=== PATIENT | female | born 1955 | race Caucasian/White ===

== ENCOUNTER 2018-07-12 08:00 | Inpatient (IN) ==
[~2018-07-12 08:00] MED LIST: GLUCAGON 1 MG VIAL IM PRN
[2018-07-12] MEDS ORDERED: DEXTROSE 50% 25 GM/50 ML SYRINGE IV PRN (12:00)
[2018-07-12] MEDS ORDERED: NITROGLYCERIN SL 0.4 MG TABLET SL PRN (12:00)
[2018-07-12 14:51] LABS: Basophils # 0.1 10*3/uL (0.0-0.2); Basophils % 0.6 % (0.0-0.8); Eosinophils # 0.3 10*3/uL (0.0-0.87); Eosinophils % 2.8 % (0.00-10.9); Hematocrit 39.7 VOL% (35.7-47.0); Hemoglobin 12.8 GM/DL (12.0-16.0); Immature Granulocytes % 0.7 %; Immature Granulocytes Absolute 0.08 #; Lymphocytes # 4.1 10*3/uL (1.4-4.0); Lymphocytes % 33.9 % (21.3-54.2); Mean Corpuscular HGB Conc 32.2 GM/DL (32-36); Mean Corpuscular Hemoglobin 30 PG (27-34); Mean Corpuscular Volume 92.5 FL (87-102); Mean Platelet Volume 10.1 FL (9.6-12.0); Monocytes % 8.5 % (1.7-12.7); Neutrophils # 6.4 10*3/uL (1.4-7.4); Neutrophils % 53.5 % (38.7-73.9); Platelet Count 338 T/CUMM (130-400); Red Blood Count 4.29 MC/CUMM (3.8-5.5); Red Cell Distribution Width 13.7 % (9.3-17.3)
[2018-07-12] MEDS ORDERED: SODIUM CHLORIDE 0.9% 1,000 ML IV SCH (15:00)
[2018-07-12 15:09] LABS: Alanine Aminotransferase 24 U/L (13-56); Albumin 3.3 G/DL (3.4-5.0); Alkaline Phosphatase 122 U/L (45-117); Aspartate Amino Transferase 14 U/L (0-37); Bilirubin,Total < 0.39 MG/DL (0.2-1.0); Blood Urea Nitrogen 22 MG/DL (7-18); Calcium 8.9 MG/DL (8.5-10.1); Glucose 95 MG/DL (74-106); Osmolality,Calculated 277.7 MOS/KG (273-304); Potassium 3.6 MMOL/L (3.5-5.1); Sodium 138 MMOL/L (136-145); Total Protein 7.2 G/DL (6.4-8.3)
[2018-07-12] MEDS: CARVEDILOL 12.5 MG TABLET PO SCH (17:46)
[2018-07-12] MEDS ORDERED: IBUPROFEN 400 MG TABLET PO PRN (17:55)
[2018-07-12] MEDS ORDERED: ATORVASTATIN 80 MG TABLET PO SCH (21:00)
[2018-07-12] MEDS ORDERED: THYROID 60 MG TABLET PO SCH (21:00)
[2018-07-13] MEDS: CHLORHEXIDINE 0.12% ORAL RINSE 60 ML BOTTLE SWISH/SPIT SCH ×3 (00:16→21:30)
[2018-07-13] MEDS: RANOLAZINE 500 MG TABLET PO SCH ×2 (00:16→18:07)
[2018-07-13] MEDS: DULoxetine 30 MG CAPSULE PO SCH ×2 (00:16→18:06)
[2018-07-13] MEDS: CHLORHEXIDINE 4% SOLN 118 ML BOTTLE TOP SCH ×2 (00:16→18:06)
[2018-07-13] MEDS ORDERED: VANCOMYCIN 1,000 MG VIAL ONE (04:21)
[2018-07-13] MEDS ORDERED: PAPAVERINE 60 MG/2 ML VIAL ONE (04:21)
[2018-07-13] MEDS: CARVEDILOL 12.5 MG TABLET PO SCH (05:33)
[2018-07-13] MEDS ORDERED: FAMOTIDINE 20 MG TABLET PO ONE (06:00)
[2018-07-13] MEDS ORDERED: PANTOPRAZOLE 40 MG TABLET PO ONE (06:00)
[2018-07-13] MEDS ORDERED: VANCOMYCIN INJ 1,000 MG in SODIUM CHLORIDE 0.9% 250 ML IV ONE (06:00)
[2018-07-13] MEDS ORDERED: DIAZEPAM 5 MG TABLET PO ONE (06:00)
[2018-07-13] MEDS ORDERED: SUFentanil 250 MCG/5 ML AMP ONE (06:01)
[2018-07-13] MEDS ORDERED: MIDAZOLAM 10 MG/2 ML VIAL ONE ×2 (06:02)
[2018-07-13] MEDS ORDERED: VECURONIUM 10 MG VIAL IV ONE (06:02)
[2018-07-13] MEDS ORDERED: MINERAL OIL/PETROLATUM OPH OINT 3.5 GM TUBE ONE ×2 (06:02→11:05)
[2018-07-13] MEDS ORDERED: NITROGLYCERIN DRIP 50 MG/250 ML BOTTLE IV ONE (06:19)
[2018-07-13 07:45] LABS: ABG Base Excess -3.2 MMOL/L (-2.5-2.5); ABG HCO3 21.7 MMOL/L (20-26); ABG Oxygen Saturation 99.2 % (95-100); ABG PCO2 43.6 MM HG (35-48); ABG PH 7.326 (7.35-7.45); ABG TCO2 20.6 MMOL/L (23-27); Glucose Heart Surgery 117 MG/DL (74-106); Hematocrit Heart Surgery 34.2 PERCENT (37-47); Hemoglobin Heart Surgery 11.1 G/DL (12.0-16.0); Ionized Calcium Arterial 1.22 MMOL/L (1.21-1.46); PCO2 Patient Temp Arterial 43.6 MMHG; PH Patient Temp Arterial 7.326; Patient Temperature 37 CELCIUS; Potassium Heart/CVR 4.3 MMOL/L (3.5-5.1); Sodium Heart/CVR 138 MMOL/L (135-145)
[2018-07-13] MEDS ORDERED: ASPIRIN 325 MG TABLET PO SCH (09:00)
[2018-07-13] MEDS ORDERED: SPIRONOLACTONE 25 MG TABLET PO SCH (09:00)
[2018-07-13] MEDS ORDERED: LISINOPRIL 20 MG TABLET PO SCH (09:00)
[2018-07-13] MEDS ORDERED: POTASSIUM CHLORIDE RIDER 100 ML IV ONE ×2 (09:10→12:16)
[2018-07-13] MEDS ORDERED: CALCIUM CHLORIDE 1,000 MG/10 ML SYRINGE IV ONE (09:10)
[2018-07-13] MEDS ORDERED: PHENYLEPHRINE DRIP 40 MG/250 ML PREMIX IV ONE (09:10)
[2018-07-13] MEDS ORDERED: NITROPRUSSIDE 50 MG/2 ML VIAL ONE (09:10)
[2018-07-13 09:14] LABS: Apearance,Urine CLEAR (Clear); Bilirubin,Urine Negative (Negative); Blood, Urine Negative (Negative); Glucose,Urine (UA) Negative (Negative); Ketones,Urine Negative (Negative); Nitrite,Urine Negative (Negative); Protein,Urine Negative; RBC,Urine <1 /HPF (0-4); Squamous Epithelial Cell,Urine Occasional /HPF (0-10); Urine Color Straw (Yellow); Urine Specific Gravity 1.011 (1.001-1.035); Urine Urobilinogen < 2.0 EU/DL (0.2-1.0)
[2018-07-13] MEDS ORDERED: HEPARIN/NACL 0.9% 2 UNITS/ML 500 ML IV ONE (09:14)
[2018-07-13] MEDS ORDERED: PHENYLEPHRINE DRIP 20 MG/250 ML PREMIX IV ONE (09:14)
[2018-07-13 09:20] LABS: Hematocrit Heart Surgery 23.1 PERCENT (37-47); Hemoglobin Heart Surgery 7.4 G/DL (12.0-16.0); PCO2 Patient Temp Venous 40.6 MM HG; PH Patient Temp Venous 7.364; PO2 Patient Temp Venous 40.8 MM HG; Potassium Heart/CVR 5.3 MMOL/L (3.5-5.1); VBG Base Excess -1.8 MEQ/L (0-4); VBG HCO3 22.7 MEQ/L (24-28); VBG Oxygen Saturation 83.4 %; VBG PH 7.321; VBG PO2 50.1 MMHG (17-40)
[2018-07-13 09:53] LABS: Hematocrit Heart Surgery 26.7 PERCENT (37-47); Hemoglobin Heart Surgery 8.6 G/DL (12.0-16.0); PCO2 Patient Temp Venous 41.1 MM HG; PH Patient Temp Venous 7.368; PO2 Patient Temp Venous 42.8 MM HG; Potassium Heart/CVR 5.4 MMOL/L (3.5-5.1); VBG Base Excess -1.6 MEQ/L (0-4); VBG HCO3 22.8 MEQ/L (24-28); VBG Oxygen Saturation 77.5 %; VBG PCO2 41.1 MMHG (41-51); VBG PH 7.368; VBG PO2 42.8 MMHG (17-40)
[2018-07-13 10:18] LABS: ABG Base Excess -3.2 MMOL/L (-2.5-2.5); ABG HCO3 21.7 MMOL/L (20-26); ABG Oxygen Saturation 97.9 % (95-100); ABG PCO2 42.6 MM HG (35-48); ABG PH 7.331 (7.35-7.45); ABG TCO2 20.8 MMOL/L (23-27); Glucose Heart Surgery 203 MG/DL (74-106); Hematocrit Heart Surgery 28.7 PERCENT (37-47); Hemoglobin Heart Surgery 9.3 G/DL (12.0-16.0); Ionized Calcium Arterial 1.45 MMOL/L (1.21-1.46); PCO2 Patient Temp Arterial 42.6 MMHG; PH Patient Temp Arterial 7.331; Patient Temperature 37 CELCIUS; Potassium Heart/CVR 4.4 MMOL/L (3.5-5.1); Sodium Heart/CVR 133 MMOL/L (135-145)
[2018-07-13] MEDS ORDERED: DEXTROSE 5% KCL 20 MEQ 20 MEQ/1,000 ML BAG IV ONE (11:03)
[2018-07-13] MEDS ORDERED: MANNITOL 100 GM/500 ML BAG IV ONE (11:03)
[2018-07-13] MEDS ORDERED: SODIUM BICARBONATE 50 MEQ/50 ML SYRINGE IV ONE (11:03)
[2018-07-13] MEDS ORDERED: HEPARIN 10,000 UNIT/10 ML VIAL ONE (11:04)
[2018-07-13] MEDS ORDERED: FUROSEMIDE 20 MG/2 ML VIAL ONE (11:04)
[2018-07-13] MEDS ORDERED: ALBUMIN 25% 25 GM/100 ML VIAL IV ONE (11:04)
[2018-07-13] MEDS ORDERED: PROTAMINE SULFATE 250 MG/25 ML VIAL IV ONE (11:04)
[2018-07-13] MEDS ORDERED: methylPREDNISolone SOD SUC 1,000 MG/8 ML VIAL ONE (11:04)
[2018-07-13] MEDS ORDERED: ePHEDrine 50 MG/ML AMP ONE (11:05)
[2018-07-13] MEDS ORDERED: CALCIUM CHLORIDE 1,000 MG/10 ML VIAL IV ONE (11:05)
[2018-07-13] MEDS ORDERED: AMINOCAPROIC ACID 5,000 MG/20 ML VIAL IV ONE (11:05)
[2018-07-13] MEDS ORDERED: ETOMIDATE 40 MG/20 ML VIAL IV ONE (11:05)
[2018-07-13] MEDS ORDERED: SEVOFLURANE 1 UNIT/15 MINUTE INH ONE (11:06)
[2018-07-13] MEDS ORDERED: LACTATED RINGERS 1,000 ML IV ONE (11:06)
[2018-07-13] MEDS ORDERED: SODIUM CHLORIDE 0.9% 1,000 ML IV ONE (11:06)
[2018-07-13] MEDS ORDERED: SODIUM CHLORIDE 0.9% 500 ML IV ONE (11:06)
[2018-07-13] MEDS ORDERED: PROTAMINE SULFATE 50 MG/5 ML VIAL IV ONE ×2 (11:07→11:20)
[2018-07-13] MEDS ORDERED: MAGNESIUM SULF RIDER 2 GM in PREMIX 1 EACH IV PRN (11:24)
[2018-07-13] MEDS ORDERED: DEXTROSE 50% 25 GM/50 ML SYRINGE IV PRN ×2 (11:24)
[2018-07-13] MEDS ORDERED: MORPHINE 10 MG/1 ML VIAL IV PRN (11:24)
[2018-07-13] MEDS ORDERED: NITROPRUSSIDE 100 MG in DEXTROSE 5% 250 ML IV PRN (11:24)
[2018-07-13] MEDS ORDERED: INSULIN REGULAR 100 UNIT/ML IV PRN (11:24)
[2018-07-13] MEDS ORDERED: PHENYLEPHRINE DRIP 40 MG/250 ML PREMIX IV PRN (11:24)
[2018-07-13] MEDS ORDERED: MAGNESIUM SULF RIDER 4 GM in PREMIX 1 EACH IV PRN (11:24)
[2018-07-13] MEDS ORDERED: INSULIN REGULAR 100 UNIT/ML IV ONE (11:24)
[2018-07-13] MEDS ORDERED: MIDAZOLAM 10 MG/2 ML VIAL IV PRN (11:24)
[2018-07-13] MEDS ORDERED: VECURONIUM 10 MG VIAL IV PRN ×2 (11:24)
[2018-07-13] MEDS ORDERED: ACETAMINOPHEN 650 MG SUPP RECTAL PRN (11:24)
[2018-07-13] MEDS ORDERED: LACTATED RINGERS 250 ML IV PRN (11:24)
[2018-07-13] MEDS ORDERED: CALCIUM CHLORIDE 1,000 MG/10 ML SYRINGE IV PRN (11:24)
[2018-07-13] MEDS ORDERED: ONDANSETRON 4 MG/2 ML VIAL IV PRN (11:24)
[2018-07-13 11:43] LABS: ABG Base Excess -1.8 MMOL/L (-2.5-2.5); ABG HCO3 22.8 MMOL/L (20-26); ABG PCO2 42.3 MM HG (35-48); ABG PH 7.355 (7.35-7.45); ABG PO2 85.9 MM HG (80-95); ABG TCO2 21.4 MMOL/L (23-27); Glucose Heart Surgery 144 MG/DL (74-106); Hematocrit Heart Surgery 32.8 PERCENT (37-47); Hemoglobin Heart Surgery 10.6 G/DL (12.0-16.0); Potassium Heart/CVR 3.5 MMOL/L (3.5-5.1)
[2018-07-13 11:44] LABS: Basophils # 0.1 10*3/uL (0.0-0.2); Basophils % 0.4 % (0.0-0.8); Eosinophils # 0.2 10*3/uL (0.0-0.87); Eosinophils % 1.5 % (0.00-10.9); Immature Granulocytes % 1.2 %; Immature Granulocytes Absolute 0.16 #; Lymphocytes # 2.5 10*3/uL (1.4-4.0); Lymphocytes % 19.5 % (21.3-54.2); Mean Corpuscular HGB Conc 31.9 GM/DL (32-36); Mean Corpuscular Hemoglobin 30 PG (27-34); Mean Corpuscular Volume 92.5 FL (87-102); Mean Platelet Volume 10.2 FL (9.6-12.0); Monocytes % 8.1 % (1.7-12.7); Neutrophils # 8.9 10*3/uL (1.4-7.4); Neutrophils % 69.3 % (38.7-73.9); Red Blood Count 3.46 MC/CUMM (3.8-5.5); Red Cell Distribution Width 13.7 % (9.3-17.3); White Blood Count 12.9 T/CUMM (4-12)
[2018-07-13 11:51] LABS: Hemoglobin 10.2 GM/DL (12.0-16.0); Platelet Count 253 T/CUMM (130-400)
[2018-07-13 11:54] LABS: INR 1.1; Partial Thromboplastin Time 24.5 SECS (0-40)
[2018-07-13] MEDS: LACTATED RINGERS 1,000 ML IV PRN ×2 (11:56→12:22)
[2018-07-13] MEDS: SODIUM CHLORIDE 0.45% 1,000 ML IV SCH ×2 (11:56)
[2018-07-13] MEDS: POTASSIUM CHLORIDE RIDER 20 MEQ in PREMIX 1 EACH IV PRN ×2 (11:57→14:02)
[2018-07-13 12:06] LABS: CKMB % 6.7 %
[2018-07-13 12:10] LABS: Troponin I 2.37 NG/ML (0.00-0.045)
[2018-07-13 12:13] LABS: Albumin 2.9 G/DL (3.4-5.0); Bilirubin,Total 0.6 MG/DL (0.2-1.0); Calcium 9.2 MG/DL (8.5-10.1); Osmolality,Calculated 280.5 MOS/KG (273-304); Potassium 3.6 MMOL/L (3.5-5.1); Total Protein 5.5 G/DL (6.4-8.3)
[2018-07-13] MEDS: KETOROLAC 30 MG/1 ML VIAL IV SCH ×3 (12:19→23:52)
[2018-07-13] MEDS: POTASSIUM CHLORIDE RIDER 10 MEQ in PREMIX 1 EACH IV PRN (12:19)
[2018-07-13 12:59] LABS: ABG Base Excess -1.2 MMOL/L (-2.5-2.5); ABG HCO3 23.4 MMOL/L (20-26); ABG Oxygen Saturation 98.3 % (95-100); ABG PCO2 40.2 MM HG (35-48); ABG TCO2 21.5 MMOL/L (23-27); Glucose Heart Surgery 123 MG/DL (74-106); Hematocrit Heart Surgery 33.1 PERCENT (37-47); Hemoglobin Heart Surgery 10.7 G/DL (12.0-16.0)
[2018-07-13] MEDS: ALBUMIN 5% 12.5 GM in PREMIX 1 EACH IV PRN ×2 (13:55→14:59)
[2018-07-13 15:21] LABS: ABG Base Excess -0.8 MMOL/L (-2.5-2.5); ABG HCO3 23.7 MMOL/L (20-26); ABG Oxygen Saturation 97.9 % (95-100); ABG PCO2 39.2 MM HG (35-48); ABG PH 7.393 (7.35-7.45); Glucose Heart Surgery 145 MG/DL (74-106); Hematocrit Heart Surgery 39.5 PERCENT (37-47); Hemoglobin Heart Surgery 12.8 G/DL (12.0-16.0); Potassium Heart/CVR 4.2 MMOL/L (3.5-5.1)
[2018-07-13] MEDS: INSULIN REGULAR DRIP 100 ML IV SCH (18:07)
[2018-07-13 18:53] LABS: ABG Base Excess -1.9 MMOL/L (-2.5-2.5); ABG HCO3 22.8 MMOL/L (20-26); ABG Oxygen Saturation 97.8 % (95-100); ABG PCO2 46.7 MM HG (35-48); ABG PH 7.326 (7.35-7.45); ABG TCO2 22.1 MMOL/L (23-27); Glucose Heart Surgery 163 MG/DL (74-106); Hematocrit Heart Surgery 33.7 PERCENT (37-47); Hemoglobin Heart Surgery 10.9 G/DL (12.0-16.0)
[2018-07-13 19:24] LABS: CKMB % 5.7 %
[2018-07-13 19:32] LABS: Troponin I 7.33 NG/ML (0.00-0.045)
[2018-07-13] MEDS: MORPHINE 4 MG/1 ML VIAL IV PRN (22:48)
[2018-07-13] MEDS: VANCOMYCIN INJ 1,000 MG in SODIUM CHLORIDE 0.9% 250 ML IV SCH (23:51)
[2018-07-14] MEDS ORDERED: FUROSEMIDE 40 MG/4 ML VIAL IV ONE
[2018-07-14 00:03] LABS: ABG Base Excess -0.5 MMOL/L (-2.5-2.5); ABG HCO3 24.1 MMOL/L (20-26); ABG Oxygen Saturation 97.5 % (95-100); ABG PCO2 39.4 MM HG (35-48); ABG PH 7.404 (7.35-7.45); ABG PO2 115.8 MM HG (80-95); ABG TCO2 25.3 MMOL/L (23-27); Glucose Heart Surgery 156 MG/DL (74-106); Hemoglobin Heart Surgery 10.8 G/DL (12.0-16.0); Potassium Heart/CVR 4.1 MMOL/L (3.5-5.1)
[2018-07-14] MEDS: INSULIN REGULAR DRIP 100 ML IV SCH (00:55)
[2018-07-14] MEDS: MORPHINE 4 MG/1 ML VIAL IV PRN ×3 (01:48→22:02)
[2018-07-14 02:10] LABS: ABG Base Excess -0.8 MMOL/L (-2.5-2.5); ABG HCO3 24.4 MMOL/L (20-26); ABG Oxygen Saturation 97.5 % (95-100); ABG PCO2 42.5 MM HG (35-48); ABG PH 7.377 (7.35-7.45); ABG PO2 115.4 MM HG (80-95); ABG TCO2 25.7 MMOL/L (23-27); Glucose Heart Surgery 154 MG/DL (74-106); Hemoglobin Heart Surgery 10.6 G/DL (12.0-16.0); Potassium Heart/CVR 3.7 MMOL/L (3.5-5.1)
[2018-07-14 03:21] LABS: Basophils % 0.1 % (0.0-0.8); Hematocrit 30.7 VOL% (35.7-47.0); Hemoglobin 9.8 GM/DL (12.0-16.0); Immature Granulocytes % 0.7 %; Immature Granulocytes Absolute 0.13 #; Lymphocytes # 1.6 10*3/uL (1.4-4.0); Lymphocytes % 8.7 % (21.3-54.2); Mean Corpuscular HGB Conc 31.9 GM/DL (32-36); Mean Corpuscular Hemoglobin 30 PG (27-34); Mean Corpuscular Volume 92.7 FL (87-102); Mean Platelet Volume 10.6 FL (9.6-12.0); Monocytes # 1.2 10*3/uL (0.11-0.8); Monocytes % 6.6 % (1.7-12.7); Neutrophils # 15.4 10*3/uL (1.4-7.4); Neutrophils % 83.9 % (38.7-73.9); Platelet Count 303 T/CUMM (130-400); Red Blood Count 3.31 MC/CUMM (3.8-5.5); White Blood Count 18.4 T/CUMM (4-12)
[2018-07-14 03:22] LABS: ABG Base Excess -0.6 MMOL/L (-2.5-2.5); ABG HCO3 24.6 MMOL/L (20-26); ABG Oxygen Saturation 97.4 % (95-100); ABG PCO2 42.5 MM HG (35-48); ABG PO2 115.3 MM HG (80-95); ABG TCO2 25.9 MMOL/L (23-27); Glucose Heart Surgery 142 MG/DL (74-106); Hemoglobin Heart Surgery 10.3 G/DL (12.0-16.0); Potassium Heart/CVR 3.6 MMOL/L (3.5-5.1)
[2018-07-14 03:41] LABS: CKMB % 4.6 %
[2018-07-14 03:43] LABS: Troponin I 5.15 NG/ML (0.00-0.045)
[2018-07-14 04:07] LABS: ABG Base Excess 0.3 MMOL/L (-2.5-2.5); ABG HCO3 25.9 MMOL/L (20-26); ABG Oxygen Saturation 97.8 % (95-100); ABG PCO2 45.9 MM HG (35-48); ABG PH 7.369 (7.35-7.45); ABG PO2 134.5 MM HG (80-95); ABG TCO2 27.3 MMOL/L (23-27); Glucose Heart Surgery 139 MG/DL (74-106); Hemoglobin Heart Surgery 10.5 G/DL (12.0-16.0); Potassium Heart/CVR 3.8 MMOL/L (3.5-5.1)
[2018-07-14 05:10] LABS: ABG Base Excess 0.9 MMOL/L (-2.5-2.5); ABG HCO3 26.5 MMOL/L (20-26); ABG Oxygen Saturation 98.1 % (95-100); ABG PCO2 46.6 MM HG (35-48); ABG PH 7.373 (7.35-7.45); ABG PO2 153.9 MM HG (80-95); ABG TCO2 27.9 MMOL/L (23-27); Glucose Heart Surgery 136 MG/DL (74-106); Hemoglobin Heart Surgery 10.4 G/DL (12.0-16.0); Potassium Heart/CVR 3.8 MMOL/L (3.5-5.1)
[2018-07-14] MEDS: KETOROLAC 30 MG/1 ML VIAL IV SCH ×2 (05:50→11:34)
[2018-07-14] MEDS: POTASSIUM CHLORIDE RIDER 20 MEQ in PREMIX 1 EACH IV PRN (05:52)
[2018-07-14 06:18] LABS: Albumin 3.2 G/DL (3.4-5.0); Bilirubin,Direct 0.1 MG/DL (0.0-0.20); Bilirubin,Total 0.5 MG/DL (0.2-1.0); Calcium 8.9 MG/DL (8.5-10.1); Potassium 3.8 MMOL/L (3.5-5.1); Total Protein 6.4 G/DL (6.4-8.3)
[2018-07-14] MEDS: POTASSIUM CHLORIDE RIDER 10 MEQ in PREMIX 1 EACH IV PRN (07:32)
[2018-07-14] MEDS: MIDAZOLAM 2 MG/2 ML VIAL IV PRN ×2 (09:07→09:08)
[2018-07-14] MEDS: CHLORHEXIDINE 0.12% ORAL RINSE 60 ML BOTTLE SWISH/SPIT SCH ×2 (09:55→20:57)
[2018-07-14] MEDS: VANCOMYCIN INJ 1,000 MG in SODIUM CHLORIDE 0.9% 250 ML IV SCH (11:34)
[2018-07-14] MEDS: INSULIN REGULAR 100 UNIT/ML SUBCUT SCH ×3 (12:17→20:57)
[2018-07-14] MEDS ORDERED: MAGNESIUM SULF RIDER 2 GM in PREMIX 1 EACH IV PRN (12:18)
[2018-07-14] MEDS ORDERED: GLUCAGON 1 MG VIAL IM PRN ×2 (12:18)
[2018-07-14] MEDS ORDERED: MAGNESIUM SULF RIDER 4 GM in PREMIX 1 EACH IV PRN (12:18)
[2018-07-14] MEDS ORDERED: ZALEPLON 5 MG CAPSULE PO PRN (12:18)
[2018-07-14] MEDS ORDERED: ALUMINUM/MAGNES/SIMETH MAX STR 30 ML UDCUP PO PRN (12:18)
[2018-07-14] MEDS ORDERED: MAGNESIUM HYDROXIDE SUSP 30 ML UDCUP PO PRN (12:18)
[2018-07-14] MEDS ORDERED: SODIUM CHLOR 0.45% KCL 20 MEQ 20 MEQ/1,000 ML BAG IV SCH (12:18)
[2018-07-14] MEDS ORDERED: DEXTROSE 50% 25 GM/50 ML SYRINGE IV PRN ×2 (12:18)
[2018-07-14] MEDS ORDERED: POTASSIUM CHLORIDE 20 MEQ TABLET PO PRN (12:18)
[2018-07-14] MEDS ORDERED: ACETAMINOPHEN 325 MG TABLET PO PRN (12:18)
[2018-07-14] MEDS: ONDANSETRON 4 MG/2 ML VIAL IV PRN (15:30)
[2018-07-14] MEDS: SODIUM CHLORIDE 0.45% 1,000 ML IV SCH ×2 (16:01)
[2018-07-14] MEDS: CARVEDILOL 12.5 MG TABLET PO SCH (17:16)
[2018-07-14] MEDS: traMADol 50 MG TABLET PO PRN (18:53)
[2018-07-14] MEDS: DULoxetine 30 MG CAPSULE PO SCH (20:57)
[2018-07-14] MEDS: THYROID 60 MG TABLET PO SCH (20:57)
[2018-07-14] MEDS: RANOLAZINE 500 MG TABLET PO SCH (20:57)
[2018-07-14] MEDS: ATORVASTATIN 80 MG TABLET PO SCH (20:58)
[2018-07-15] MEDS: INSULIN REGULAR 100 UNIT/ML SUBCUT SCH ×6 (00:23→23:58)
[2018-07-15] MEDS: MORPHINE 4 MG/1 ML VIAL IV PRN ×3 (02:20→22:12)
[2018-07-15] MEDS: IBUPROFEN 400 MG TABLET PO PRN ×3 (03:35→19:18)
[2018-07-15 05:12] LABS: Basophils % 0.1 % (0.0-0.8); Hematocrit 28.6 VOL% (35.7-47.0); Immature Granulocytes % 0.9 %; Lymphocytes # 2.9 10*3/uL (1.4-4.0); Lymphocytes % 13.8 % (21.3-54.2); Mean Corpuscular HGB Conc 31.5 GM/DL (32-36); Mean Corpuscular Hemoglobin 30 PG (27-34); Mean Corpuscular Volume 95.7 FL (87-102); Mean Platelet Volume 11.2 FL (9.6-12.0); Neutrophils # 15.1 10*3/uL (1.4-7.4); Neutrophils % 71.2 % (38.7-73.9); Platelet Count 247 T/CUMM (130-400); Red Blood Count 2.99 MC/CUMM (3.8-5.5); Red Cell Distribution Width 14.5 % (9.3-17.3); White Blood Count 21.2 T/CUMM (4-12)
[2018-07-15 05:55] LABS: Alanine Aminotransferase 17 U/L (13-56); Albumin 2.9 G/DL (3.4-5.0); Alkaline Phosphatase 75 U/L (45-117); Aspartate Amino Transferase 19 U/L (0-37); Bilirubin,Direct < 0.100 MG/DL (0.0-0.20); Bilirubin,Indirect 0.6 MG/DL (0.0-1.0); Blood Urea Nitrogen 28 MG/DL (7-18); Glucose 110 MG/DL (74-106); Osmolality,Calculated 287.3 MOS/KG (273-304); Potassium 4.4 MMOL/L (3.5-5.1); Sodium 141 MMOL/L (136-145); Total Protein 6.3 G/DL (6.4-8.3)
[2018-07-15] MEDS ORDERED: FUROSEMIDE 40 MG/4 ML VIAL IV ONE (06:00)
[2018-07-15 06:14] LABS: Hypochromasia 1+; Lymphocytes 11 % (20-55); Segmented Neutrophils 78 % (50-85); Total Cells Counted 100
[2018-07-15 06:15] LABS: Microcytosis Slight; Platelet Estimate Normal
[2018-07-15] MEDS: LISINOPRIL 20 MG TABLET PO SCH (08:44)
[2018-07-15] MEDS: FERROUS SULFATE 325 MG TABLET PO SCH (08:44)
[2018-07-15] MEDS: SPIRONOLACTONE 25 MG TABLET PO SCH (08:44)
[2018-07-15] MEDS: CARVEDILOL 12.5 MG TABLET PO SCH ×2 (08:44→16:49)
[2018-07-15] MEDS: PANTOPRAZOLE 40 MG TABLET PO SCH (08:44)
[2018-07-15] MEDS: RANOLAZINE 500 MG TABLET PO SCH ×2 (08:44→22:04)
[2018-07-15] MEDS: DOCUSATE SODIUM 100 MG CAPSULE PO SCH (08:44)
[2018-07-15] MEDS: ASPIRIN CHEW 81 MG TABLET PO SCH (08:44)
[2018-07-15] MEDS: DULoxetine 30 MG CAPSULE PO SCH ×2 (08:45→22:04)
[2018-07-15] MEDS: CHLORHEXIDINE 0.12% ORAL RINSE 60 ML BOTTLE SWISH/SPIT SCH ×2 (08:46→22:05)
[2018-07-15] MEDS: ONDANSETRON 4 MG/2 ML VIAL IV PRN ×2 (09:30→18:35)
[2018-07-15] MEDS: ASCORBIC ACID 500 MG TABLET PO SCH ×2 (14:49→22:04)
[2018-07-15] MEDS: ATORVASTATIN 80 MG TABLET PO SCH (22:04)
[2018-07-15] MEDS: THYROID 60 MG TABLET PO SCH (22:11)
[2018-07-16] MEDS: INSULIN REGULAR 100 UNIT/ML SUBCUT SCH ×5 (01:12→16:44)
[2018-07-16 05:30] LABS: Basophils % 0.1 % (0.0-0.8); Hematocrit 30.1 VOL% (35.7-47.0); Hemoglobin 9.2 GM/DL (12.0-16.0); Immature Granulocytes % 1.5 %; Immature Granulocytes Absolute 0.31 #; Lymphocytes # 3.3 10*3/uL (1.4-4.0); Mean Corpuscular HGB Conc 30.6 GM/DL (32-36); Mean Corpuscular Hemoglobin 29 PG (27-34); Mean Platelet Volume 11.3 FL (9.6-12.0); Monocytes # 2.2 10*3/uL (0.11-0.8); Monocytes % 10.8 % (1.7-12.7); Neutrophils # 14.7 10*3/uL (1.4-7.4); Neutrophils % 71.6 % (38.7-73.9); Platelet Count 255 T/CUMM (130-400); Red Blood Count 3.17 MC/CUMM (3.8-5.5); Red Cell Distribution Width 14.1 % (9.3-17.3); White Blood Count 20.5 T/CUMM (4-12)
[2018-07-16 06:02] LABS: Alanine Aminotransferase 18 U/L (13-56); Alkaline Phosphatase 79 U/L (45-117); Aspartate Amino Transferase 17 U/L (0-37); Bilirubin,Indirect 0.8 MG/DL (0.0-1.0); Blood Urea Nitrogen 27 MG/DL (7-18); Calcium 8.8 MG/DL (8.5-10.1); Glucose 103 MG/DL (74-106); Osmolality,Calculated 281.5 MOS/KG (273-304); Potassium 4.3 MMOL/L (3.5-5.1); Sodium 139 MMOL/L (136-145); Total Protein 6.3 G/DL (6.4-8.3)
[2018-07-16 06:06] LABS: Anisocytosis 1+; Band Neutrophils 9 % (0-10); Lymphocytes 10 % (20-55); Platelet Estimate Normal; Segmented Neutrophils 74 % (50-85); Total Cells Counted 100
[2018-07-16] MEDS: DULoxetine 30 MG CAPSULE PO SCH ×2 (09:39→21:48)
[2018-07-16] MEDS: RANOLAZINE 500 MG TABLET PO SCH ×2 (09:39→21:48)
[2018-07-16] MEDS: LISINOPRIL 20 MG TABLET PO SCH (09:39)
[2018-07-16] MEDS: ASCORBIC ACID 500 MG TABLET PO SCH ×2 (09:39→21:48)
[2018-07-16] MEDS: SPIRONOLACTONE 25 MG TABLET PO SCH (09:39)
[2018-07-16] MEDS: FERROUS SULFATE 325 MG TABLET PO SCH (09:39)
[2018-07-16] MEDS: DOCUSATE SODIUM 100 MG CAPSULE PO SCH (09:39)
[2018-07-16] MEDS: CARVEDILOL 12.5 MG TABLET PO SCH ×2 (09:39→18:11)
[2018-07-16] MEDS: PANTOPRAZOLE 40 MG TABLET PO SCH (09:39)
[2018-07-16] MEDS: ASPIRIN CHEW 81 MG TABLET PO SCH (09:39)
[2018-07-16] MEDS: CHLORHEXIDINE 0.12% ORAL RINSE 60 ML BOTTLE SWISH/SPIT SCH ×2 (09:40→21:50)
[2018-07-16] MEDS: IBUPROFEN 400 MG TABLET PO PRN ×2 (10:54→17:56)
[2018-07-16] MEDS: THYROID 60 MG TABLET PO SCH (21:47)
[2018-07-16] MEDS: ATORVASTATIN 80 MG TABLET PO SCH (21:48)
[2018-07-16] MEDS: MORPHINE 4 MG/1 ML VIAL IV PRN (22:32)
[2018-07-17] MEDS: IBUPROFEN 400 MG TABLET PO PRN ×3 (02:51→21:37)
[2018-07-17] MEDS: traMADol 50 MG TABLET PO PRN ×2 (07:55→18:59)
[2018-07-17] MEDS: PANTOPRAZOLE 40 MG TABLET PO SCH (09:25)
[2018-07-17] MEDS: DOCUSATE SODIUM 100 MG CAPSULE PO SCH (09:25)
[2018-07-17] MEDS: ASPIRIN CHEW 81 MG TABLET PO SCH (09:25)
[2018-07-17] MEDS: LISINOPRIL 20 MG TABLET PO SCH (09:25)
[2018-07-17] MEDS: RANOLAZINE 500 MG TABLET PO SCH ×2 (09:25→21:37)
[2018-07-17] MEDS: FERROUS SULFATE 325 MG TABLET PO SCH (09:25)
[2018-07-17] MEDS: SPIRONOLACTONE 25 MG TABLET PO SCH (09:25)
[2018-07-17] MEDS: ASCORBIC ACID 500 MG TABLET PO SCH ×2 (09:25→21:37)
[2018-07-17] MEDS: CHLORHEXIDINE 0.12% ORAL RINSE 60 ML BOTTLE SWISH/SPIT SCH ×2 (09:25→21:47)
[2018-07-17] MEDS: CARVEDILOL 12.5 MG TABLET PO SCH ×2 (09:25→16:34)
[2018-07-17] MEDS: MORPHINE 4 MG/1 ML VIAL IV PRN (09:25)
[2018-07-17] MEDS: DULoxetine 30 MG CAPSULE PO SCH ×2 (09:25→21:37)
[2018-07-17] MEDS: ATORVASTATIN 80 MG TABLET PO SCH (21:38)
[2018-07-17] MEDS: THYROID 60 MG TABLET PO SCH (21:41)
[2018-07-18 05:34] LABS: Basophils # 0.1 10*3/uL (0.0-0.2); Basophils % 0.5 % (0.0-0.8); Eosinophils # 0.4 10*3/uL (0.0-0.87); Eosinophils % 2.4 % (0.00-10.9); Hemoglobin 11.4 GM/DL (12.0-16.0); Immature Granulocytes % 4.6 %; Immature Granulocytes Absolute 0.84 #; Lymphocytes # 6.6 10*3/uL (1.4-4.0); Mean Corpuscular HGB Conc 31.7 GM/DL (32-36); Mean Corpuscular Hemoglobin 30 PG (27-34); Mean Corpuscular Volume 93.5 FL (87-102); Mean Platelet Volume 10.6 FL (9.6-12.0); Monocytes # 1.8 10*3/uL (0.11-0.8); Monocytes % 9.7 % (1.7-12.7); Neutrophils # 8.5 10*3/uL (1.4-7.4); Neutrophils % 46.8 % (38.7-73.9); Platelet Count 321 T/CUMM (130-400); Red Blood Count 3.85 MC/CUMM (3.8-5.5); White Blood Count 18.3 T/CUMM (4-12)
[2018-07-18 06:00] LABS: Alanine Aminotransferase 25 U/L (13-56); Albumin 2.9 G/DL (3.4-5.0); Alkaline Phosphatase 88 U/L (45-117); Aspartate Amino Transferase 11 U/L (0-37); Blood Urea Nitrogen 24 MG/DL (7-18); Glucose 90 MG/DL (74-106); Osmolality,Calculated 278.7 MOS/KG (273-304); Potassium 4.2 MMOL/L (3.5-5.1); Sodium 138 MMOL/L (136-145); Total Protein 6.5 G/DL (6.4-8.3)
[2018-07-18 06:00] LABS: Eosinophils 1 % (0-10); Hypochromasia 1+; Lymphocytes 39 % (20-55); Ovalocytes Slight; Platelet Estimate Adequate; Segmented Neutrophils 55 % (50-85); Total Cells Counted 100
[2018-07-18 06:01] LABS: Microcytosis Slight
[2018-07-18 06:02] LABS: Troponin I 0.647 NG/ML (0.00-0.045)
[2018-07-18] MEDS: traMADol 50 MG TABLET PO PRN ×2 (07:40→12:32)
[2018-07-18] MEDS: PANTOPRAZOLE 40 MG TABLET PO SCH (08:29)
[2018-07-18] MEDS: DULoxetine 30 MG CAPSULE PO SCH ×2 (08:29→22:46)
[2018-07-18] MEDS: ASPIRIN CHEW 81 MG TABLET PO SCH (08:29)
[2018-07-18] MEDS: CARVEDILOL 12.5 MG TABLET PO SCH ×2 (08:29→17:54)
[2018-07-18] MEDS: RANOLAZINE 500 MG TABLET PO SCH ×2 (08:29→22:46)
[2018-07-18] MEDS: LISINOPRIL 20 MG TABLET PO SCH (08:29)
[2018-07-18] MEDS: ASCORBIC ACID 500 MG TABLET PO SCH ×2 (08:30→22:47)
[2018-07-18] MEDS: FERROUS SULFATE 325 MG TABLET PO SCH (08:30)
[2018-07-18] MEDS: DOCUSATE SODIUM 100 MG CAPSULE PO SCH (08:30)
[2018-07-18] MEDS: SPIRONOLACTONE 25 MG TABLET PO SCH (08:30)
[2018-07-18] MEDS: CHLORHEXIDINE 0.12% ORAL RINSE 60 ML BOTTLE SWISH/SPIT SCH ×2 (08:31→22:50)
[2018-07-18] MEDS: ONDANSETRON 4 MG/2 ML VIAL IV PRN ×3 (12:33→22:44)
[2018-07-18] MEDS: MORPHINE 4 MG/1 ML VIAL IV PRN ×3 (14:01→22:44)
[2018-07-18] MEDS: THYROID 60 MG TABLET PO SCH (22:46)
[2018-07-18] MEDS: ATORVASTATIN 80 MG TABLET PO SCH (22:46)
[2018-07-19 05:27] LABS: Basophils # 0.1 10*3/uL (0.0-0.2); Basophils % 0.5 % (0.0-0.8); Eosinophils # 0.7 10*3/uL (0.0-0.87); Eosinophils % 3.3 % (0.00-10.9); Hematocrit 34.4 VOL% (35.7-47.0); Immature Granulocytes % 5.6 %; Immature Granulocytes Absolute 1.14 #; Lymphocytes % 29.5 % (21.3-54.2); Mean Corpuscular Hemoglobin 30 PG (27-34); Mean Corpuscular Volume 92.7 FL (87-102); Mean Platelet Volume 10.5 FL (9.6-12.0); Monocytes # 1.8 10*3/uL (0.11-0.8); Monocytes % 8.9 % (1.7-12.7); Neutrophils # 10.7 10*3/uL (1.4-7.4); Neutrophils % 52.2 % (38.7-73.9); Platelet Count 378 T/CUMM (130-400); Red Blood Count 3.71 MC/CUMM (3.8-5.5); Red Cell Distribution Width 13.9 % (9.3-17.3); White Blood Count 20.4 T/CUMM (4-12)
[2018-07-19 05:49] LABS: Eosinophils 5 % (0-10); Hypochromasia 1+; Lymphocytes 26 % (20-55); Microcytosis Slight; Platelet Estimate Adequate; Segmented Neutrophils 63 % (50-85); Total Cells Counted 100
[2018-07-19 05:53] LABS: Alanine Aminotransferase 23 U/L (13-56); Albumin 2.7 G/DL (3.4-5.0); Alkaline Phosphatase 92 U/L (45-117); Aspartate Amino Transferase 11 U/L (0-37); Bilirubin,Indirect 1.1 MG/DL (0.0-1.0); Blood Urea Nitrogen 23 MG/DL (7-18); Calcium 8.9 MG/DL (8.5-10.1); Glucose 96 MG/DL (74-106); Osmolality,Calculated 271.2 MOS/KG (273-304); Potassium 4.2 MMOL/L (3.5-5.1); Sodium 134 MMOL/L (136-145); Total Protein 6.3 G/DL (6.4-8.3); Troponin I 0.466 NG/ML (0.00-0.045)
[2018-07-19] MEDS: ASPIRIN CHEW 81 MG TABLET PO SCH (09:55)
[2018-07-19] MEDS: CARVEDILOL 12.5 MG TABLET PO SCH (09:55)
[2018-07-19] MEDS: DOCUSATE SODIUM 100 MG CAPSULE PO SCH (09:56)
[2018-07-19] MEDS: PANTOPRAZOLE 40 MG TABLET PO SCH (09:56)
[2018-07-19] MEDS: ASCORBIC ACID 500 MG TABLET PO SCH ×2 (09:56→22:58)
[2018-07-19] MEDS: IBUPROFEN 400 MG TABLET PO PRN ×2 (09:56→22:47)
[2018-07-19] MEDS: DULoxetine 30 MG CAPSULE PO SCH ×2 (09:57→22:58)
[2018-07-19] MEDS: RANOLAZINE 500 MG TABLET PO SCH (09:57)
[2018-07-19] MEDS: SPIRONOLACTONE 25 MG TABLET PO SCH (09:57)
[2018-07-19] MEDS: FERROUS SULFATE 325 MG TABLET PO SCH (09:57)
[2018-07-19] MEDS: LISINOPRIL 20 MG TABLET PO SCH (09:58)
[2018-07-19] MEDS: CHLORHEXIDINE 0.12% ORAL RINSE 60 ML BOTTLE SWISH/SPIT SCH ×2 (09:58→22:58)
[2018-07-19] MEDS: ONDANSETRON 4 MG/2 ML VIAL IV PRN (10:04)
[2018-07-19] MEDS: CARVEDILOL 6.25 MG TABLET PO SCH ×2 (10:33→16:46)
[2018-07-19] MEDS: LISINOPRIL 10 MG TABLET PO SCH (10:33)
[2018-07-19 19:51] LABS: Apearance,Urine CLEAR (Clear); Bacteria,Urine Occasional /HPF (Few); Bilirubin,Urine Negative (Negative); Blood, Urine Negative (Negative); Glucose,Urine (UA) Negative (Negative); Hyaline Casts,Urine 1 /LPF (0-3); Ketones,Urine Negative (Negative); Nitrite,Urine Negative (Negative); Protein,Urine Negative; RBC,Urine 1 /HPF (0-4); Squamous Epithelial Cell,Urine Occasional /HPF (0-10); Urine Color Yellow (Yellow); Urine Specific Gravity 1.009 (1.001-1.035); Urine Urobilinogen < 2.0 EU/DL (0.2-1.0); WBC,Urine 1 /HPF (0-6)
[2018-07-19] MEDS: THYROID 60 MG TABLET PO SCH (22:57)
[2018-07-19] MEDS: ATORVASTATIN 80 MG TABLET PO SCH (22:58)
[2018-07-20] MEDS: DULoxetine 30 MG CAPSULE PO SCH (09:05)
[2018-07-20] MEDS: LISINOPRIL 10 MG TABLET PO SCH (09:05)
[2018-07-20] MEDS: ASCORBIC ACID 500 MG TABLET PO SCH (09:05)
[2018-07-20] MEDS: PANTOPRAZOLE 40 MG TABLET PO SCH (09:06)
[2018-07-20] MEDS: DOCUSATE SODIUM 100 MG CAPSULE PO SCH (09:06)
[2018-07-20] MEDS: ASPIRIN CHEW 81 MG TABLET PO SCH (09:06)
[2018-07-20] MEDS: FERROUS SULFATE 325 MG TABLET PO SCH (09:06)
[2018-07-20] MEDS: SPIRONOLACTONE 25 MG TABLET PO SCH (09:06)
[2018-07-20] MEDS: CARVEDILOL 6.25 MG TABLET PO SCH (09:06)
[2018-07-20] MEDS: CHLORHEXIDINE 0.12% ORAL RINSE 60 ML BOTTLE SWISH/SPIT SCH (09:07)
[2018-07-20 12:26] VITALS: BP 126/68
[2018-07-20] MEDS: IBUPROFEN 400 MG TABLET PO PRN (13:17)
== END 2018-07-20 14:45 | disposition home or self-care (01) | DRG 236 ==
LOC: N.TELEN 13:46 → N.CVR 07-13 07:51 → N.TELES 07-14 16:13